=== PATIENT | female | born 1935 | race Caucasian/White ===

== ENCOUNTER 2019-08-30 11:54 | Day surgery (SDC) | payer MEDICARE, OTHER ==
[~2019-08-30] VITALS: Ht 160 cm; Wt 45.5 kg
[2019-08-30] MEDS ORDERED: SODIUM CHLORIDE 0.9% 1,000 ML IV SCH (12:32)
[2019-08-30 12:37] VITALS: BP 149/86
[2019-08-30] MEDS ORDERED: CALC1CAP8 PO (12:57)
[2019-08-30] MEDS ORDERED: MAGN400T36 PO (12:57)
[2019-08-30] MEDS ORDERED: SULF500T36 PO (12:57)
[2019-08-30] MEDS ORDERED: CHOL10003 PO (12:57)
[2019-08-30] MEDS ORDERED: LUTE1CAP6 PO (12:57)
[2019-08-30] MEDS ORDERED: LACT1CAP43 PO (12:58)
[2019-08-30 13:11] LABS: MEAN CORPUSCULAR HEMOGLOBIN 27.8 pg (27.0-34.8); MEAN CORPUSCULAR HGB CONC 32.3 g/dL (32.4-35.8); MEAN PLATELET VOLUME 9.9 fL (7.4-10.4); PLATELET COUNT 119 x10^3/uL (130-400); RED CELL DISTRIBUTION WIDTH 15.9 % (9.6-15.2)
[2019-08-30 13:20] LABS: ALANINE AMINOTRANSFERASE 24 U/L (12-78); ALBUMIN 4.4 g/dL (3.4-5.0); ANION GAP 11 mmol/L (5-15); CALCIUM 9.5 mg/dL (8.5-10.1); CHLORIDE 107 mmol/L (98-107)
[2019-08-30 13:22] LABS: ALKALINE PHOSPHATASE 58 U/L (45-117); BILIRUBIN,TOTAL 0.6 mg/dL (0.2-1.0); TOTAL PROTEIN 7.8 g/dL (6.4-8.2)
[2019-08-30 13:28] LABS: MD YES
[2019-08-30 14:02] LABS: BAND#(MANUAL) 0.13 x10^3/uL; BANDS%(MANUAL) 1 % (0-7); MONOS#(MANUAL) 0.27 x10^3/uL (0.3-2.7); MONOS% (MANUAL) 2 % (2-9)
[2019-08-30 14:05] LABS: LYMPH#(MANUAL) 3.62 x10^3/uL (1-3.4); LYMPHS% (MANUAL) 27 % (22-44)
[2019-08-30 14:06] LABS: REACTIVE LYMPHS # (MANUAL) 4.82 x10^3/uL (0-0); REACTIVE LYMPHS % (MANUAL) 36 % (0-0); SEG#(MANUAL) 4.56 x10^3/uL (1.8-6.8); SEGS% (MANUAL) 34 % (42-75)
[2019-08-30] MEDS ORDERED: FENTANYL PF 100 MCG/2ML ONE (14:06)
[2019-08-30] MEDS ORDERED: MIDAZOLAM 1 MG/ML, 2ML ONE (14:06)
[2019-08-30] MEDS ORDERED: LIDOCAINE 2%, 20ML ONE (14:06)
[2019-08-30 14:07] LABS: <PLATELET ESTIMATE> DECREASED
[2019-08-30] MEDS ORDERED: HEPARIN 1,000 UNITS/ML, 10ML ONE (14:07)
[2019-08-30] MEDS ORDERED: VERAPAMIL 2.5 MG/ML, 2ML ONE (14:07)
[2019-08-30 14:08] LABS: <PLT MORPHOLOGY> NORMAL PLT MORPH; <RBC MORPHOLOGY> NORMAL
[2019-09-11] MEDS ORDERED: ASPI81TA45 PO (09:27)
[2019-09-11] MEDS ORDERED: CLOP75TA PO (09:27)
[2019-09-11] MEDS ORDERED: ACET325T26 PO (09:27)
== END 2019-08-30 16:41 | disposition home or self-care (01) ==
LOC: CACL 11:54
PROVIDERS: ATTEND Internal Medicine Cardiovascular Disease
DX: R07.9 Chest pain, unspecified (principal); I25.10 Atherosclerotic heart disease of native coronary artery without angina pectoris; I35.0 Nonrheumatic aortic (valve) stenosis; Z79.899 Other long term (current) drug therapy; Z87.891 Personal history of nicotine dependence; Z85.6 Personal history of leukemia; Z90.49 Acquired absence of other specified parts of digestive tract; Z90.710 Acquired absence of both cervix and uterus
CPT/HCPCS: 36415; 80053; 85025; 93454; 99156; C1769; C1894; J1644; J2250; J3010; Q9967

== ENCOUNTER → 2019-09-06 | Outpatient (CLI) | payer MEDICARE, OTHER ==
[~2019-09-06] MED LIST: CALC1CAP8 PO; CHOL10003 PO; LACT1CAP43 PO; LUTE1CAP6 PO; MAGN400T36 PO; METOPROLOL 1 MG/ML, 5ML ONE; SULF500T36 PO; VISIPAQUE 320 MG/ML, 150ML BOTTLE ONE
== END | disposition home or self-care (01) ==
LOC: CVU 09:35
PROVIDERS: ATTEND Internal Medicine Cardiovascular Disease
DX: I65.21 Occlusion and stenosis of right carotid artery (principal); K76.0 Fatty (change of) liver, not elsewhere classified; I25.10 Atherosclerotic heart disease of native coronary artery without angina pectoris; I70.0 Atherosclerosis of aorta; J98.4 Other disorders of lung; I51.7 Cardiomegaly; K76.89 Other specified diseases of liver; R16.1 Splenomegaly, not elsewhere classified; M85.88 Other specified disorders of bone density and structure, other site; M47.814 Spondylosis without myelopathy or radiculopathy, thoracic region; M41.85 Other forms of scoliosis, thoracolumbar region
CPT/HCPCS: 71275; 74174; 93880; Q9967

== ENCOUNTER 2019-10-08 09:56 | Outpatient (CLI) | payer MEDICARE, OTHER ==
[~2019-10-08 09:56] MED LIST changes: +ACET325T26 PO; +ASPI81TA45 PO; +CLOP75TA PO; -METOPROLOL 1 MG/ML, 5ML ONE; -VISIPAQUE 320 MG/ML, 150ML BOTTLE ONE
== END 2019-10-08 23:59 | disposition home or self-care (01) ==
LOC: CVU 09:56
PROVIDERS: ATTEND Internal Medicine Cardiovascular Disease
DX: Z09 Encounter for follow-up examination after completed treatment for conditions other than malignant neoplasm (principal); Z87.891 Personal history of nicotine dependence; Z95.2 Presence of prosthetic heart valve
CPT/HCPCS: 33361; 92986; 93306; 93355; 93356; C1760; C1769; C1894; Q9967